=== PATIENT | female | born 1945 | race Caucasian/White ===

== ENCOUNTER → 2018-06-18 08:09 | Outpatient (CLI) | payer MEDICARE, SELFPAY ==
[2018-06-18 11:36] LABS: Alanine Aminotransferase 32 U/L (12-78); Albumin Level 3.5 gm/dL (3.4-5.0); Albumin/Globulin Ratio 0.9 (1.1-1.8); Alkaline Phosphatase 80 U/L (46-116); Anion Gap 9.7 mEq/L (5-15); Aspartate Amino Transferase 22 U/L (15-37); Bilirubin,Total 0.5 mg/dL (0.2-1.0); Blood Urea Nitrogen 14 mg/dL (7-18); Calcium 9.9 mg/dL (8.5-10.1); Carbon Dioxide 28 mmol/L (21.0-32.0); Chloride 106 mmol/L (98-107); Creatinine,Serum 0.69 mg/dL (0.55-1.02); Estimated Glomerular Filt Rate 84 ml/min (>60); GFR (African American) 101 ML/MIN (>60); Globulin 3.7 gm/dl (1.3-3.2); Glucose 103 mg/dL (74-106); Potassium 4.7 mmoL/L (3.5-5.1); Sodium 139 mmol/L (136-145); Total Protein,Serum 7.2 gm/dL (6.4-8.2)
[2018-06-18 11:46] LABS: Thyroid Stimulating Hormone 0.17 uIU/ml (0.358-3.740)
== END ==
PROVIDERS: Visit Provider Internal Medicine Adolescent Medicine
DX: E03.9 Hypothyroidism, unspecified (principal)
CPT/HCPCS: 36415; 80053; 84443

== ENCOUNTER → 2019-01-07 13:32 | Outpatient (POV) | payer MEDICARE, SELFPAY | PROVIDERS: Visit Provider Dermatology | DX: Z00.00 Encounter for general adult medical examination without abnormal findings (principal) ==

== ENCOUNTER → 2019-02-04 15:40 | Outpatient (POV) | payer MEDICARE, SELFPAY | PROVIDERS: Visit Provider Dermatology | DX: Z00.00 Encounter for general adult medical examination without abnormal findings (principal) ==

== ENCOUNTER → 2019-03-11 11:28 | Outpatient (POV) | payer MEDICARE, SELFPAY | PROVIDERS: Visit Provider Dermatology | DX: Z00.00 Encounter for general adult medical examination without abnormal findings (principal) ==

== ENCOUNTER → 2019-06-02 12:34 | Outpatient (CLI) | payer MEDICARE, SELFPAY ==
[2019-06-02 14:33] LABS: Thyroid Stimulating Hormone 0.03 uIU/ml (0.358-3.740)
[2019-06-03 14:12] LABS: Free Thyroxine Index 3.7 ug/dL (5.93-13.13); T4 (Thyroxine) 9.5 ug/dl (4.7-13.3); Triiodothryronine (T3) Uptake 39 % (31-39)
== END ==
PROVIDERS: Visit Provider Internal Medicine Adolescent Medicine
DX: E03.9 Hypothyroidism, unspecified (principal)
CPT/HCPCS: 36415; 84436; 84443; 84479

== ENCOUNTER → 2019-06-17 13:01 | Outpatient (POV) | payer MEDICARE, SELFPAY | PROVIDERS: Visit Provider Dermatology | DX: Z00.00 Encounter for general adult medical examination without abnormal findings (principal) ==

== ENCOUNTER → 2019-08-19 13:03 | Outpatient (POV) | payer MEDICARE, SELFPAY | PROVIDERS: Visit Provider Dermatology | DX: Z00.00 Encounter for general adult medical examination without abnormal findings (principal) ==

== ENCOUNTER → 2020-02-03 11:02 | Outpatient (POV) | payer MEDICARE, SELFPAY | PROVIDERS: PCP Dermatology; Visit Provider Dermatology | DX: Z00.00 Encounter for general adult medical examination without abnormal findings (principal) ==

== ENCOUNTER → 2020-04-10 08:28 | Outpatient (CLI) | payer MEDICARE, SELFPAY ==
[2020-04-10 08:52] LABS: Basophils % 0.5 % (0.1-2.0); Eosinophils # 0.2 K/mm3 (0.0-0.4); Eosinophils % 4.1 % (0.1-12.0); Hemoglobin 14.5 g/dL (12.2-16.2); Lymphocytes # 1.5 K/mm3 (0.7-4.5); Lymphocytes % 33.2 % (10-50); Mean Corpuscular HGB Conc 32.4 g/dL (31.8-35.4); Mean Corpuscular Volume 101.8 fl (81-99); Mean Platelet Volume 7.1 fl (7.4-10.4); Monocytes # 0.3 K/mm3 (0.1-1.0); Monocytes % 5.6 % (1.7-9.3); Neutrophils # 2.6 K/mm3 (1.8-7.8); Neutrophils % 56.7 % (37.0-80.0); Platelet Count 264 K/mm3 (142-424); Red Blood Count 4.41 M/mm3 (4.20-5.40); Red Cell Distribution Width 13.5 % (11.5-17.5); White Blood Count 4.6 K/mm3 (4.8-10.8)
[2020-04-10 11:21] LABS: Alanine Aminotransferase 28 U/L (12-78); Albumin Level 4.4 g/dl (3.5-5.0); Albumin/Globulin Ratio 1.4 (1.1-1.8); Alkaline Phosphatase 66 U/L (38-126); Anion Gap 9.1 mEq/L (5-15); Aspartate Amino Transferase 35 U/L (14-36); Bilirubin,Total 0.3 mg/dl (0.2-1.3); Blood Urea Nitrogen 13 mg/dl (7-17); Calcium 10.7 mg/dl (8.4-10.2); Carbon Dioxide 30 mmol/L (22.0-30.0); Chloride 103 mmol/L (98-107); Estimated Glomerular Filt Rate 98 ml/min (>60); GFR (African American) 119 ML/MIN (>60); Globulin 3.1 g/dL (1.3-3.2); Glucose 118 mg/dl (74-100); Potassium 5.1 mmoL/L (3.5-5.1); Sodium 137 mmol/L (136-145); Total Protein,Serum 7.5 g/dl (6.3-8.2)
[2020-04-10 11:51] LABS: Thyroid Stimulating Hormone 0.36 uIU/mL (0.465-4.68)
[2020-04-10 12:11] LABS: Hemoglobin A1C 5.3 % (4.0-6.0)
[2020-04-12 11:13] LABS: Vitamin D 25 Hydroxy 38.2 ng/mL (30.0-100.0)
[2020-04-14 14:33] LABS: Vitamin B12 619 pg/mL (232-1245)
== END ==
PROVIDERS: Visit Provider Internal Medicine Adolescent Medicine
DX: E03.9 Hypothyroidism, unspecified (principal); E78.5 Hyperlipidemia, unspecified; D75.89 Other specified diseases of blood and blood-forming organs; M85.80 Other specified disorders of bone density and structure, unspecified site; Z83.3 Family history of diabetes mellitus; R73.9 Hyperglycemia, unspecified
CPT/HCPCS: 36415; 80053; 82607; 82652; 83036; 84443; 85025

== ENCOUNTER → 2020-08-10 12:03 | Outpatient (POV) | payer MEDICARE, SELFPAY | PROVIDERS: Visit Provider Dermatology | DX: Z00.00 Encounter for general adult medical examination without abnormal findings (principal) ==

== ENCOUNTER → 2021-05-02 08:05 | Outpatient (CLI) | payer MEDICARE, SELFPAY ==
[2021-05-02 09:09] LABS: Basophils # 0.1 K/mm3 (0-0.2); Basophils % 0.9 % (0.1-2.0); Eosinophils # 0.1 K/mm3 (0.0-0.4); Eosinophils % 2.8 % (0.1-12.0); Hematocrit 44.2 % (37.0-47.0); Hemoglobin 14.5 g/dL (12.2-16.2); Lymphocytes # 1.8 K/mm3 (0.7-4.5); Lymphocytes % 34.6 % (10-50); Mean Corpuscular HGB Conc 32.7 g/dL (31.8-35.4); Mean Corpuscular Hemoglobin 31.8 pg (27.0-31.2); Mean Corpuscular Volume 97.1 fl (81-99); Mean Platelet Volume 7.2 fl (7.4-10.4); Monocytes # 0.3 K/mm3 (0.1-1.0); Monocytes % 5.1 % (1.7-9.3); Neutrophils # 2.9 K/mm3 (1.8-7.8); Neutrophils % 56.5 % (37.0-80.0); Platelet Count 285 K/mm3 (142-424); Red Blood Count 4.56 M/mm3 (4.20-5.40); Red Cell Distribution Width 13.3 % (11.5-17.5); White Blood Count 5.1 K/mm3 (4.8-10.8)
[2021-05-02 09:53] LABS: Alanine Aminotransferase 25 U/L (12-78); Albumin Level 4.3 g/dl (3.5-5.0); Albumin/Globulin Ratio 1.5 (1.1-1.8); Alkaline Phosphatase 65 U/L (38-126); Anion Gap 7.7 mEq/L (5-15); Aspartate Amino Transferase 33 U/L (14-36); Bilirubin,Total 0.5 mg/dl (0.2-1.3); Blood Urea Nitrogen 12 mg/dl (7-17); Calcium 10.2 mg/dl (8.4-10.2); Carbon Dioxide 31 mmol/L (22.0-30.0); Chloride 106 mmol/L (98-107); Chol/HDL Ratio 2.2 (1-3.5); Cholesterol 209 mg/dl (140-200); Estimated Glomerular Filt Rate 82 ml/min (>60); GFR (African American) 99 ML/MIN (>60); Globulin 2.8 g/dL (1.3-3.2); Glucose 106 mg/dl (74-100); HDL Cholesterol 97 mg/dl (40-60); Potassium 4.7 mmoL/L (3.5-5.1); Sodium 140 mmol/L (136-145); Total Protein,Serum 7.1 g/dl (6.3-8.2); Triglycerides 106 mg/dl (30-150); VLDL Cholesterol 21 mg/dL (0-40)
[2021-05-02 10:04] LABS: Direct LDL Cholesterol 86.66 mg/dL (100-129)
[2021-05-02 10:25] LABS: 25-OH Vitamin D, Total 43.5 ng/mL (30-100)
== END ==
PROVIDERS: Visit Provider Internal Medicine Adolescent Medicine
DX: E03.9 Hypothyroidism, unspecified (principal); E78.5 Hyperlipidemia, unspecified; M85.80 Other specified disorders of bone density and structure, unspecified site; Z83.3 Family history of diabetes mellitus
CPT/HCPCS: 36415; 80053; 80061; 82306; 84443; 85025

== ENCOUNTER → 2021-07-19 13:49 | Outpatient (POV) | payer MEDICARE, SELFPAY | PROVIDERS: Visit Provider Dermatology | DX: Z00.00 Encounter for general adult medical examination without abnormal findings (principal) ==

== ENCOUNTER → 2022-07-25 11:10 | Outpatient (POV) | payer MEDICARE, SELFPAY | PROVIDERS: Visit Provider Dermatology | DX: Z00.00 Encounter for general adult medical examination without abnormal findings (principal) ==

== ENCOUNTER → 2022-09-15 12:44 | Outpatient (CLI) | payer MEDICARE, SELFPAY ==
--- NOTE | 2022-09-15 12:56 | XR_ITS ---
FINAL REPORT CLINICAL HISTORY: LT SIDED LOW BACK PAIN FINDINGS: SACROILIAC JOINTS Three views demonstrate no acute fracture or dislocation. There are mild degenerative changes of the SI joints. There is partial sacralization of L5 on the right. No soft tissue abnormality is seen. IMPRESSION: Mild degenerative change with no acute bony abnormality. Reviewed, Interpreted and Dictated by Brooks Aragon III, MD Transcribed by Agueda Veloz Authenticated and [facility]
== END ==
PROVIDERS: PCP Internal Medicine Adolescent Medicine; Visit Provider Internal Medicine Adolescent Medicine
DX: M54.50 Low back pain, unspecified (principal)
CPT/HCPCS: 72202

== ENCOUNTER → 2022-09-18 08:05 | Outpatient (CLI) | payer MEDICARE, SELFPAY ==
[2022-09-18 09:04] LABS: Basophils # 0.1 K/mm3 (0-0.2); Basophils % 1.1 % (0.1-2.0); Eosinophils # 0.2 K/mm3 (0.0-0.4); Eosinophils % 3.7 % (0.1-12.0); Hematocrit 44.4 % (37.0-47.0); Lymphocytes # 1.5 K/mm3 (0.7-4.5); Mean Corpuscular HGB Conc 31.6 g/dL (31.8-35.4); Mean Corpuscular Hemoglobin 32.2 pg (27.0-31.2); Mean Corpuscular Volume 101.8 fl (81-99); Mean Platelet Volume 7.4 fl (7.4-10.4); Monocytes # 0.3 K/mm3 (0.1-1.0); Monocytes % 5.4 % (1.7-9.3); Neutrophils # 3.1 K/mm3 (1.8-7.8); Neutrophils % 60.7 % (37.0-80.0); Platelet Count 341 K/mm3 (142-424); Red Blood Count 4.36 M/mm3 (4.20-5.40)
[2022-09-18 10:10] LABS: Chloride 102 mmol/L (98-107); Potassium 5.5 mmoL/L (3.5-5.1); Sodium 139 mmol/L (136-145)
[2022-09-18 10:12] LABS: Alanine Aminotransferase 23 U/L (12-78); Aspartate Amino Transferase 33 U/L (14-36); Blood Urea Nitrogen 13 mg/dl (7-17); Estimated Glomerular Filt Rate 97 ml/min (>60); GFR (African American) 118 ML/MIN (>60)
[2022-09-18 10:13] LABS: Albumin Level 4.2 g/dl (3.5-5.0); Albumin/Globulin Ratio 1.6 (1.1-1.8); Alkaline Phosphatase 76 U/L (38-126); Anion Gap 10.5 mEq/L (5-15); Bilirubin,Total 0.2 mg/dl (0.2-1.3); Calcium 10.2 mg/dl (8.4-10.2); Carbon Dioxide 32 mmol/L (22.0-30.0); Cholesterol 211 mg/dl (140-200); Globulin 2.7 g/dL (1.3-3.2); Glucose 104 mg/dl (74-100); Magnesium 2.1 mg/dl (1.6-2.3); Total Protein,Serum 6.9 g/dl (6.3-8.2); Triglycerides 83 mg/dl (30-150); VLDL Cholesterol 17 mg/dL (0-40)
[2022-09-18 10:14] LABS: HDL Cholesterol 90 mg/dl (40-60)
[2022-09-18 10:15] LABS: Chol/HDL Ratio 2.3 (1-3.5)
[2022-09-18 10:25] LABS: Direct LDL Cholesterol 91.27 mg/dL (100-129)
[2022-09-18 10:30] LABS: Free Thyroxine Index 2.6 ug/dL (5.93-13.13); T4 (Thyroxine) 8.1 ug/dl (5.53-11.0); Triiodothryronine (T3) Uptake 32 % (23.5-40.5)
[2022-09-18 10:44] LABS: Thyroid Stimulating Hormone 3.83 uIU/mL (0.465-4.68)
== END ==
PROVIDERS: PCP Internal Medicine Adolescent Medicine; Visit Provider Internal Medicine Adolescent Medicine
DX: R00.2 Palpitations (principal); E03.9 Hypothyroidism, unspecified; E78.5 Hyperlipidemia, unspecified; M54.50 Low back pain, unspecified; Z83.3 Family history of diabetes mellitus
CPT/HCPCS: 36415; 80053; 80061; 83735; 84436; 84443; 84479; 85025

== ENCOUNTER → 2022-10-03 13:46 | Outpatient (POV) | payer MEDICARE, SELFPAY ==
[2022-10-03 14:16] VITALS: BP 136/96; PULSE 101; RESP 18; O2SAT 99; BMI 22.3
--- NOTE | 2022-10-03 14:31 | EXP.PAIN.OV ---
HPI Data of Consult Patient: new to practice Consult date: 10/03/22 Requesting Physician: Elidia Varela APRN Primary Care Provider: Hood Ramírez MD Consult Narrative Reason for consult: Low back pain, left hip pain History of present illness: Ms. Saenz is a 77 year old female who presents today as a new patient. She is a referral from Eda Garcia's office. Today she rates her pain a 2 out of 10. Patient states her pain is all along her low back on the left side that radiates into her left hip. Patient describes this as a burning, aching sensation that is worse with increased activity. Patient denies any new trauma or injury. Patient states this has been going on for approximately the last several months and worsened over time. Patient does state the pain is intermittent and is frequently aggravated with prolonged sitting or standing. Patient also states that she does frequently get woken up at night due to the pain in her left SI area and hip. Patient states she does use ibuprofen as needed to help with her pain symptoms. Patient also states she uses heat and ice that provides temporary relief. Patient has tried Biofreeze and Aspercreme that provides some relief however temporary. Patient states she will frequently use a pillow between her knees for positioning at night to help with her pain. Patient states she is a runner and feels like she may have irritated or an inflamed nerve or joint. Patient does state that she continues to stay active however she has been only able to do more walking than running due to her pain. Patient has seen physical therapy in the past when she had a knee meniscus tear that did provide some improvement of her symptoms. Patient is not on any scheduled medications. Her Jose G is [phone]. It is been reviewed and appropriate. CC: Elidia Varela APRN [facility] Medical History (Updated 10/03/22 @ 14:37 by Elidia Varela APRN) HTN (hypertension) Hypothyroidism Osteoporosis Social History (Updated 10/03/22 @ 14:23 by Jami Iniguez RN) Smoking Status: Never smoker alcohol intake: never current occupational status: retired Travel in the last 8 weeks: None Review of Systems Review of Systems Review of systems:: pertinent systems reviewed and negative unless documented below Review of systems (narrative): Review of Systems: General: No recent weight changes, no fever, no sleep disturbances Respiratory: No cough, no shortness of air, no recurring pulmonary infections Cardiovascular/peripheral vascular: No chest pain, no palpitations, no edema, no shortness of breath Gastrointestinal: No new onset incontinence, normal bowel movements reported Genitourinary: No new onset incontinence Musculoskeletal: Low back pain, left hip pain Psychiatric: [Normal mood/affect] Neurological: [Denies weakness in extremities], [denies balance issues] Meds Home Medications and Allergies Home Medications Medication Instructions Recorded Confirmed Type hydroxychloroquine 200 mg tablet 200 mg PO DAILY . 10/03/22 10/03/22 History levothyroxine 125 mcg tablet 125 mcg PO DAILY THYROID 10/03/22 10/03/22 History losartan 50 mg tablet 50 mg PO DAILY BLOOD PRESSURE 10/03/22 10/03/22 History raloxifene 60 mg tablet 60 mg PO DAILY Osteoporosis 10/03/22 10/03/22 History New Prescriptions to Start Prescriptions: Allergies Allergy/AdvReac Type Severity Reaction Status Date / Time No Known Drug Allergies Allergy Unknown Unverified 11/06/17 14:24 [NKDA] Objective Vital signs: Pulse Resp BP Pulse Ox 101 H 18 136/96 H 99 10/03/22 14:16 10/03/22 14:16 10/03/22 14:16 10/03/22 14:16 Narrative: Physical Exam: General: Alert and oriented x3, no acute distress, pleasant and cooperative Lungs: Respirations even and unlabored, symmetrical chest expansion Eyes: PERRL Musculoskeletal: Flexion and extension of lumbar [spine] somewhat guarded secondary to pain, [antalgic gai
== END ==
PROVIDERS: PCP Internal Medicine Adolescent Medicine; Visit Provider Nurse Practitioner Family
DX: M46.1 Sacroiliitis, not elsewhere classified (principal); M70.60 Trochanteric bursitis, unspecified hip; M54.50 Low back pain, unspecified
CPT/HCPCS: 99202; G0463

== ENCOUNTER 2022-10-06 10:27 | Day surgery (SDC) | payer MEDICARE, SELFPAY ==
[2022-10-06 10:47] VITALS: BP 143/88; PULSE 81; RESP 18; TEMP 36.2; O2SAT 98; BMI 22.3
--- NOTE | 2022-10-06 11:19 | P.PCN_ITS ---
Procedure Date: 10/06/22 Time: 11:00 Anesthesiologist:: Frankie Vee CRNA Complications:: None Pre-procedure Diagnosis:: Left sacroiliitis. Left trochanteric bursitis. Post-procedure Diagnosis:: Same. Indications for Procedure:: Very pleasant 77-year-old female that comes our clinic today for left trochanteric bursa injection as well as left sacroiliac joint injection. Patient describes this left posterior and lateral pain as constant, dull, sharp, stabbing at times. She rates her pain 7/10. Procedure Details:: Procedure: Left sacroiliac injection under fluoroscopy Informed consent was obtained and the risk and benefits of the procedure were explained to the patient.~ The patient was taken to the procedure room and noninvasive monitors were placed including noninvasive blood pressure cuff and pulse oximeter.~ The patient was placed prone on the procedure table.~ The~ left hip was cleansed using Betadine as a cleansing solution.~ C-arm fluorosocpy was used to view the left SI joint.~ The skin and subcutaneous tissues were anesthetized using Lidocaine 1.5% and a 25-gauge needle.~ After this, a 22-gauge spinal needle was inserted under fluoroscopic guidance into the inferior aspect of the left SI joint.~ Omnipaque dye was injected and a good spread was seen throughout the joint.~ After this, approximately 5 mL of bupivacaine 0.25% and Depo-Medrol 40 mg was incrementally injected into the sacroiliac joint.~ The patient tolerated the procedure well with no complications.~ The patient was observed in the Pain Clinic for a period of 30-45 minutes, then discharged home neurologically intact.~ Procedure:Left trochanteric bursa injection under fluoroscopy We then moved to the left trochanteric bursa.~ C-arm fluoroscopy was used to view the left greater trochanter.~ The skin and subcutaneous tissues overlying the left greater trochanter were anesthetized using lidocaine, 1.5% and a 25- gauge needle.~ After this, a 22-gauge spinal needle was inserted and advanced until it contacted the left greater trochanter.~ Dye was injected and good spread was seen throughout the left trochanteric bursa. After this, approximately 5 mL of bupivacaine, 0.25% and Depo-Medrol, 40 mg was incrementally injected into the left trochanteric bursa.~ The patient tolerated the procedure well with no complications. Plan and Disposition:: Patient was discharged without incident.
[2022-10-06 11:21] VITALS: BP 153/97; PULSE 73; RESP 20
== END 2022-10-06 11:23 | disposition home or self-care (01) ==
PROVIDERS: PCP Internal Medicine Adolescent Medicine; Visit Provider Nurse Anesthetist, Certified Registered
DX: M46.1 Sacroiliitis, not elsewhere classified (principal); M70.62 Trochanteric bursitis, left hip
CPT/HCPCS: 20610; 27096; G0260; J1040

== ENCOUNTER → 2022-10-30 10:01 | Outpatient (POV) | payer MEDICARE, SELFPAY ==
--- NOTE | 2022-10-30 10:19 | EXP.PAIN.SOA ---
[facility] Pain Management SOAP Note Subjective:: Patient is a pleasant 77-year-old female who presents today for follow-up of left SI injection and left trochanteric bursa injection on 10/06/2022. We are currently treating the patient for low back pain, left hip pain, greater trochanteric bursitis, sacroiliitis. Today the patient states she has had significant improvement in her left hip following this injection. Patient has had at least 80% relief in this area however she states she has had worsening pain in her low back along her SI that radiates down her left leg to her ankle. Patient denies any new trauma or injury. Patient describes this as a achy, numb pain that is worse in the mornings and progressively gets better as the day goes on. Patient states this is bad with prolonged sitting. Patient is currently using [id number] Tylenol or ibuprofen as needed to provide some improvement of her symptoms. She is not currently on any scheduled medications. Her Jose G is [phone]. It has been reviewed and appropriate. Review of Systems: General: No recent weight changes, no fever, no sleep disturbances Respiratory: No cough, no shortness of air, no recurring pulmonary infections Cardiovascular/peripheral vascular: No chest pain, no palpitations, no edema, no shortness of breath Gastrointestinal: No new onset incontinence, normal bowel movements reported Genitourinary: No new onset incontinence Musculoskeletal: Low back pain Psychiatric: [Normal mood/affect] Neurological: [Denies weakness in extremities], [denies balance issues] Objective:: Physical Exam: General: Alert and oriented x3, no acute distress, pleasant and cooperative Lungs: Respirations even and unlabored, symmetrical chest expansion Eyes: PERRL Musculoskeletal: Flexion and extension of lumbar [spine] somewhat guarded secondary to pain, [antalgic gait noted] Neurological: Speech clear, no gross sensory deficit Assessment:: Low back pain, left hip pain, greater trochanteric bursitis, sacroiliitis Plan:: Patient is experiencing significant pain in her low back that radiates down her left leg. Patient did have limited range of motion of her lumbar spine during today's visit. I will order the patient tizanidine 4 mg at bedtime and provide a 14-day supply of this medication. I will also order the patient a compounding cream. I have discussed with the patient that she may benefit from a transforaminal epidural steroid injection. Risk and benefits were discussed with the patient. We will follow-up with the patient in 2 weeks for reevaluation of symptoms, medication refill and follow-up. At our upcoming visit we will discuss whether or not she would like to proceed forward with this injection. Patient has been instructed to contact the clinic with any concerns before the next appointment. Dr. Ayala has reviewed this note and agrees with this plan of care. This note was dictated using voice recognition software and make contain errors or omissions. [facility] Disclaimer: The information contained in this section may have been updated after the patient was seen, as this information can be updated by other users. Medical History HTN (hypertension) Hypothyroidism Osteoporosis Family History (Updated 10/06/22 @ 10:49 by Janeth Marie RN) Other No significant family history Social History (Updated 10/06/22 @ 10:49 by Janeth Marie RN) Smoking Status: Never smoker alcohol intake: never current occupational status: retired Travel in the last 8 weeks: None
[2022-10-30 10:28] VITALS: BP 166/102; PULSE 82; RESP 18; O2SAT 99; BMI 22.1
== END | disposition home or self-care (01) ==
PROVIDERS: PCP Internal Medicine Adolescent Medicine; Visit Provider Nurse Practitioner Family
DX: M46.1 Sacroiliitis, not elsewhere classified (principal); M70.60 Trochanteric bursitis, unspecified hip; M25.552 Pain in left hip; M54.50 Low back pain, unspecified
CPT/HCPCS: 99212; G0463

== ENCOUNTER → 2022-11-23 08:45 | Outpatient (POV) | payer MEDICARE, SELFPAY ==
--- NOTE | 2022-11-23 09:12 | A.OFFVIS_ITS ---
[facility] Pain Management SOAP Note Subjective:: Patient is a pleasant 77-year-old female who presents today for follow-up. We are currently treating the patient for low back pain, left hip pain, greater trochanteric bursitis, sacroiliitis. Today the patient rates her pain a 3 out of 10. Patient denies any new trauma or injury. Patient denies any change location or type of pain she experiences. Patient does describe this as a painful sensation that is worse at night and in the morning however as the day goes on it does ease up. Patient has had SI injections and bursa injections in the past that provided significant if he cannot improvement of at least 80%. Patient does use [id number] Tylenol or ibuprofen with some additional improvement. Patient was recently prescribed tizanidine 4 mg at at bedtime and compounding cream however she states that she has not noticed significant improvement with either of these. Her Jose G is [phone]. It has been reviewed and appropriate. Review of Systems: General: No recent weight changes, no fever, no sleep disturbances Respiratory: No cough, no shortness of air, no recurring pulmonary infections Cardiovascular/peripheral vascular: No chest pain, no palpitations, no edema, no shortness of breath Gastrointestinal: No new onset incontinence, normal bowel movements reported Genitourinary: No new onset incontinence Musculoskeletal: Low back pain, left leg pain Psychiatric: [Normal mood/affect] Neurological: [Denies weakness in extremities], [denies balance issues] Objective:: Physical Exam: General: Alert and oriented x3, no acute distress, pleasant and cooperative Lungs: Respirations even and unlabored, symmetrical chest expansion Eyes: PERRL Musculoskeletal: Flexion and extension of lumbar [spine] somewhat guarded secondary to pain, [antalgic gait noted] Neurological: Speech clear, no gross sensory deficit ORT score updated with low risk of 0 Assessment:: Low back pain, left hip pain, left sacroiliitis, left greater trochanteric bursitis Plan:: Patient continues to experience significant pain along her left SI and down her thigh however at this time she is not interested in injective therapy. I will prescribe her ropinirole 0.25 mg at bedtime and provide a 14-day supply of this medication. Patient will return to clinic in 2 months for reevaluation, medication refill and follow-up. Patient has been instructed to contact the clinic with any concerns before the next appointment. Dr. Ayala has reviewed this note and agrees with this plan of care. This note was dictated using voice recognition software and make contain errors or omissions. [facility] Disclaimer: The information contained in this section may have been updated after the patient was seen, as this information can be updated by other users. Medical History HTN (hypertension) Hypothyroidism Osteoporosis Family History (Updated 10/06/22 @ 10:49 by Janeth Marie RN) Other No significant family history Social History (Updated 10/06/22 @ 10:49 by Janeth Marie RN) Smoking Status: Never smoker alcohol intake: never current occupational status: retired Travel in the last 8 weeks: None
[2022-11-23 09:21] VITALS: BP 148/90; PULSE 76; RESP 18; O2SAT 97; BMI 22.1
== END | disposition home or self-care (01) ==
PROVIDERS: PCP Internal Medicine Adolescent Medicine; Visit Provider Nurse Practitioner Family
DX: M46.1 Sacroiliitis, not elsewhere classified (principal); M70.62 Trochanteric bursitis, left hip; M54.50 Low back pain, unspecified; M25.552 Pain in left hip
CPT/HCPCS: 99212; G0463

== ENCOUNTER 2023-04-24 15:00 | Outpatient (RCR) | payer MEDICARE, SELFPAY ==
--- NOTE | 2023-03-27 11:43 | HMH.PTOPEV ---
PT Outpatient Evaluation Rehab PT Outpatient Evaluation Start: 03/27/23 10:52 Freq: Status: Active Protocol: Document 03/27/23 10:52 ROSS (Rec: 03/27/23 11:42 ROSS [id number]) E-signed By Elidia Gilliland, PT Outpatient Therapy Subjective History Subjective History Pt is a 78 y/o female who reports chronic LBP with worsening of L sided symptoms last fall without known cause, graciela trauma or injury. Pt reports her PCP referred her to pain management initially where she received a SIJ injection that flared up her scaitic N. Pt reports after the injection she had sharp, shooting pain from the left posterior hip to the ankle. Pt reports she started seeing a chiropractor at the beginning of the year which helped with radicular symptoms. Pt reports she stopped seeing him ~3 weeks ago. Pt states she currently has stiffness of the low back when she wakes up and first starts walking after sedentary periods. Pt reports intermittent referral of pain to the left posterior hip to the buttocks, denies distal symptoms. Pt denies paresthesia or b/b dysfunction . Pt reports she is very active and walks 3 miles per day. Pt reports prior to onset of pain she was running 6x/ week and would like to return to this. Medical History: HTN ( hypertension), Hypothyroidism, Osteopenia Chief Complaint Pain,Stiff Symptom Type Ache,Sharp,Dull Symptoms Relieved By Ice,OTC Meds Symptoms Aggravated By Sitting,Walking,Lifting Prior Functional Limitations None Current Functional Limitations Lifting,Recreation Activity, Walking,Stairs Symptom Description Constant but Variable Level of pain today (0-10) 1 Pain scale - at its best (0-10) 1 Pain scale - at its worst (0-10)
== END 2023-04-24 15:05 | disposition home or self-care (01) ==
LOC: PT 15:00
PROVIDERS: PCP Internal Medicine Adolescent Medicine; Visit Provider Internal Medicine Adolescent Medicine
DX: M54.50 Low back pain, unspecified (principal)
CPT/HCPCS: 97110; 97140; 97163; 97530

== ENCOUNTER 2024-07-29 13:42 | Outpatient (POV) | payer MEDICARE, SELFPAY | END 2024-07-29 23:59 | disposition home or self-care (01) | PROVIDERS: PCP Internal Medicine Adolescent Medicine; Visit Provider Dermatology | DX: Z00.00 Encounter for general adult medical examination without abnormal findings (principal) ==

== ENCOUNTER 2024-12-02 09:16 | Outpatient (CLI) | payer MEDICARE, SELFPAY ==
--- NOTE | 2024-12-02 09:22 | CT_ITS ---
FINAL REPORT TECHNIQUE: Oral and IV contrast enhanced exam This study was performed with techniques to keep radiation doses as low as reasonably achievable, (ALARA). Individualized dose reduction techniques using automated exposure control or adjustment of mA and/or kV according to the patient''s size were employed. CLINICAL HISTORY: FLANK PAIN, generalized abd pain in front FINDINGS: Abdomen: There are vague small nodular densities bilaterally in the lung bases, could represent bronchopneumonia. There is a hypodensity within the central pancreas suspicious for a mass. This is seen on coronal images 17 through 20 of series 601. On coronal images, the presumed mass measures 46 x 22 mm. The mass probably encases the portal vein-SMV junction. There is pancreatic ductal dilatation measuring up to 7 mm distal to the mass. This is indicative of pancreatic ductal obstruction. There is adenopathy in the peripancreatic region and shaina hepatis. On axial image 38, adenopathy measures 13 mm. On axial image 33, adenopathy medial to the portal vein measures 28 mm. The liver is unremarkable without evidence of bile obstruction. Remaining solid organs are unremarkable. There is no evidence of ascites. Pelvis: The appendix is normal. The uterus is normal aside from small fibroids. There is no free fluid. 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 No obvious liver metastases. Densities in the bilateral lung bases, could represent bronchopneumonia. Non emergent CT is recommended. Reviewed, Interpreted and Dictated by Trey Mar MD Transcribed by Hien Gorman Authenticated and [facility]
[2024-12-02] MEDS: IOPAMIDOL-370 (76%);100ML BOTTLE 75 ML IV (09:48)
[2024-12-02] MEDS: SODIUM CHLORIDE 0.9% 10ML SYR (RAD ONLY) 10 ML IV (09:48)
== END 2024-12-02 23:59 | disposition home or self-care (01) ==
LOC: RAD 09:17
PROVIDERS: PCP Internal Medicine Adolescent Medicine; Visit Provider Internal Medicine Adolescent Medicine
DX: R10.84 Generalized abdominal pain (principal)
CPT/HCPCS: 74177; Q9967

== ENCOUNTER 2024-12-25 17:48 | Emergency (ER) | payer MEDICARE, SELFPAY ==
[2024-12-25] VITALS (9 sets, daily range): BP systolic 146–211; BP diastolic 86–122; PULSE 85–93; RESP 12–20; TEMP 36.5–36.9; O2SAT 95–98; BMI 22.0
--- NOTE | 2024-12-25 17:51 | ED_ITS ---
Discharge Plan Disposition Patient Disposition: Home, Self-Care Condition: Good Prescriptions Prescriptions: No Action losartan 50 mg tablet 50 mg PO DAILY levothyroxine 125 mcg tablet 125 mcg PO DAILY raloxifene 60 mg tablet 60 mg PO DAILY hydroxychloroquine 200 mg tablet 200 mg PO DAILY ropinirole 0.25 mg tablet 0.25 mg PO HS Qty: 14 0RF Rx Instructions: administer 1-3 hours before bedtime tizanidine [Zanaflex] 4 mg tablet 4 mg PO HS Referrals Follow up/Referrals: Hood Ramírez MD [Primary Care Provider] - See instructions Activity Restrictions/Add. Instructions Additional Instructions/Restrictions: Continue taking Xarelto twice a day. Follow-up with Dr. Ponce tomorrow. Return to the ER for any worsening signs or symptoms as needed. Clinical Impressions Clinical Impression: Pulmonary emboli Qualifiers: Pulmonary embolism type: multiple subsegmental (without acute cor pulmonale) Qualified Code(s): I26.94 - Multiple subsegmental thrombotic pulmonary emboli without acute cor pulmonale Print Language Print Language: [place] Discharge ED Provider: Elidia Hayes General Adult HPI <SHAUN Casiano - Last Filed: 12/25/24 20:02> General Chief complaint: Recheck/Abnormal Lab/Rx Stated complaint: sent by [facility] blood clots in lungs Time Seen by Provider: 12/25/24 17:51 History of Present Illness HPI narrative: Patient presents for evaluation of pulmonary embolus. Patient has a recent diagnosis of pancreatic cancer that is metastatic. She is currently undergoing workup at the [facility]. As part of that workup she had a CT PE protocol done today that showed right lower lobe subsegmental pulmonary emboli. She was advised to come to the ER for evaluation. Patient herself denies any chest pain shortness of breath fever chills hemoptysis hematochezia melena hematemesis hematuria. She is not on a blood thinner and does not have a cardiac history. Related Data Home Medications ?Medication ?Instructions ?Recorded ?Confirmed hydroxychloroquine 200 mg tablet 200 mg PO DAILY . 10/03/22 12/25/24 levothyroxine 125 mcg tablet 125 mcg PO DAILY THYROID 10/03/22 12/25/24 losartan 50 mg tablet 50 mg PO DAILY BLOOD PRESSURE 10/03/22 12/25/24 raloxifene 60 mg tablet 60 mg PO DAILY Osteoporosis 10/03/22 12/25/24 tizanidine 4 mg tablet (Zanaflex) 4 mg PO HS MUSCLES 11/23/22 12/25/24 Previous Rx's ?Medication ?Instructions ?Recorded ropinirole 0.25 mg tablet 0.25 mg PO HS #14 tabs 11/23/22 Allergies Allergy/AdvReac Type Severity Reaction Status Date / Time No Known Drug Allergies Allergy Unknown Verified 10/06/22 10:47 (NKDA) [facility] <SHAUN Casiano - Last Filed: 12/25/24 20:02> [facility] Disclaimer: The information contained in this section may have been updated after the patient was seen, as this information can be updated by other users. Medical History (Updated 12/25/24 @ 19:48 by SHAUN Casiano) Osteoporosis HTN (hypertension) Hypothyroidism Family History (Updated 10/06/22 @ 10:49 by Janeth Marie RN) Other No significant family history Social History (Updated 10/06/22 @ 10:49 by Janeth Marie RN) Smoking Status: Never smoker alcohol intake: never current occupational status: retired Travel in the last 8 weeks: None Have you lived/traveled outside [place] in past 30 days?: No Contact w/someone who lives/traveled outside US past 30 days?: No Exposure to someone with infectious disease in past 14 days?: No Do you have a fever (greater than 100.4 F or 38 C)?: No Have you tested positive for COVID-19: No Exposed to someone with COVID-19 in past 14 days?: No Do you have a sore throat?: No Do you have a cough?: No Do you have any weakness?: No Do you have any diarrhea?: No Are you experiencing any unusual bleeding?: No Do you have any muscle aches/pain?: No Do you have any abdominal pain?: No Are you experiencing loss of taste or smell?: No Other Medical History Have you received the Flu Vaccine for this season: Yes Have you received the Pneumonia Vaccine: Yes <SHAUN Casiano - Last Filed: 12/25/24 20:02> ROS Obtained: Yes Systems reviewed as appropriate & no additional complaints except as documented Physical Exam <SHAUN Casiano - Last Filed: 12/25/24 20:02> General General appearance: alert Respiratory Respiratory exam: Present normal lung sounds bilaterally Cardiovascular Cardiovascular exam: Present regular rate Neurological Exam Neurological exam: Present alert and oriented X3 Psychiatric Psychiatric exam: Present normal affect Medical Decision Making <SHAUN Casiano - Last Filed: 12/25/24 20:02> Medical Records Medical records reviewed: Yes I reviewed the patient's medical records. Screening: Per USPSTF and CDC recommendations, given the prevalence of disease in our region, it is our hospital?s policy to screen for HIV and viral Hepatitis for all patients aged 18 and over and those with ongoing risk factors. Jose G Inquiry Pt receiving controlled substance: No Vital Signs: 12/25/24 17:49 12/25/24 17:53 12/25/24 17:55 Temperature 97.7 F Temperature Source Oral Pulse Rate 90 85 Pulse Rate [Radial] 93 H Respiratory Rate 18 Blood Pressure 202/121 H 200/118 H Blood Pressure [Right Arm] 200/118 H Blood Pressure Mean [Right Arm] 145 Blood Pressure Source Blood Pressure Source [Right Arm] Automatic Cuff Blood Pressure Position Blood Pressure Position [Right Arm] Sitting 02 Sat by Pulse Oximetry 96 95 98 Oxygen Delivery Method Room Air 12/25/24 17:58 12/25/24 18:15 12/25/24 18:31 Temperature Temperature Source Pulse Rate 91 H Pulse Rate [Radial] Respiratory Rate 19 14 13 Blood Pressure 211/122 H 185/113 H 157/91 H Blood Pressure [Right Arm] Blood Pressure Mean [Right Arm] Blood Pressure Source Blood Pressure Source [Right Arm] Blood Pressure Position Blood Pressure Position [Right Arm] 02 Sat by Pulse Oximetry 98 Oxygen Delivery Method 12/25/24 19:00 12/25/24 19:30 12/25/24 20:19 Temperature 98.4 F Temperature Source Oral Pulse Rate 89 89 Pulse Rate [Radial] Respiratory Rate 12 16 20 Blood Pressure 146/86 H 154/90 H 154/90 H Blood Pressure [Right Arm] Blood Pressure Mean [Right Arm] Blood Pressure Source Automatic Cuff Blood Pressure Source [Right Arm] Blood Pressure Position Sitting Blood Pressure Position [Right Arm] 02 Sat by Pulse Oximetry 97 Oxygen Delivery Method Room Air Room Air Room Air Lab Data Lab results reviewed: Yes I reviewed the patient's lab results. Lab Results 12/25/24 18:00: PT 10.4, INR 0.94, APTT 23.9, Troponin I < 0.01, HCV Ab CARLOS w/Rflx PCR Qn Negative, HIV Ag/Ab Combo Qual Negative Orders (Tests/Meds): ED MEDICATIONS Discontinued Medications Generic Name Dose Route Start Last Admin Trade Name Freq PRN Reason Stop Dose Admin Rivaroxaban 1 packet 12/25/24 19:49 12/25/24 20:11 Xarelto 15mg Thp 1 Packet Greg PO 12/25/24 19:50 1 packet ONCE ONE Administration ORDERS Category Date Time Status POCUS Point of Care (ER Only) Stat Exams 12/25/24 18:19 Completed HIV Combo Stat Lab 12/25/24 18:00 Completed Hepatitis C Ab Qual. W/ RFX Stat Lab 12/25/24 18:00 Completed PT/PTT Stat Lab 12/25/24 18:00 Completed Trop I [Troponin I] Stat Lab 12/25/24 18:00 Completed HEART Score History (anamnesis): Slightly suspicious ECG: Non-specific disturbance Age: >65 years Risk factors: 3 or more risk factors Troponin: </= normal limit HEART Score: 5 Medical Decision Narrative: In summary patient is a 79-year-old female who presents to the emergency department for evaluation of pulmonary emboli. Patient is initially hypertensi ve with a systolic blood pressure of 200 over diastolic of 119 with a pulse of 93 respiratory rate of 18 satting at 96% on room air upon arrival, the temperature of 97.7. Zickel exam is remarkable for a well-nourished well- developed 79-year-old female who is in currently no acute distress. Breath sounds are clear and equal bilaterally to the bases without adventitious sounds. Heart sounds are normal without any signs of murmurs gallops rubs or thrills. There is no dependent edema noted.. Differential diagnosis includes subsegmental right lower lobe pulmonary emboli versus cor pulmonale versus ACS etc. Initial workup will be conducted with coags troponins twelve-lead EKG and POCUS. Initial interventions are deferred until workup complete. Initial workup reviewed by me and twelve-lead EKG shows no evidence of ACS, coags are within normal range with an INR of 0.94 and a PTT of 23.9, and POCUS did not really reveal any evidence of right heart strain. Given this patient will be started on Xarelto with a take-home pack and will follow-up with Dr. Ponce in the morning per their arrangement. Patient given strict return precautions. <Elidia Hayes, DO - Last Filed: 12/26/24 00:23> Vital Signs: 12/25/24 17:49 12/25/24 17:53 12/25/24 17:55 Temperature 97.7 F Temperature Source Oral Pulse Rate 90 85 Pulse Rate [Radial] 93 H Respiratory Rate 18 Blood Pressure 202/121 H 200/118 H Blood Pressure [Right Arm] 200/118 H Blood Pressure Mean [Right Arm] 145 Blood Pressure Source Blood Pressure Source [Right Arm] Automatic Cuff Blood Pressure Position Blood Pressure Position [Right Arm] Sitting 02 Sat by Pulse Oximetry 96 95 98 Oxygen Delivery Method Room Air 12/25/24 17:58 12/25/24 18:15 12/25/24 18:31 Temperature Temperature Source Pulse Rate 91 H Pulse Rate [Radial] Respiratory Rate 19 14 13 Blood Pressure 211/122 H 185/113 H 157/91 H Blood Pressure [Right Arm] Blood Pressure Mean [Right Arm] Blood Pressure Source Blood Pressure Source [Right Arm] Blood Pressure Position Blood Pressure Position [Right Arm] 02 Sat by Pulse Oximetry 98 Oxygen Delivery Method 12/25/24 19:00 12/25/24 19:30 12/25/24 20:19 Temperature 98.4 F Temperature Source Oral Pulse Rate 89 89 Pulse Rate [Radial] Respiratory Rate 12 16 20 Blood Pressure 146/86 H 154/90 H 154/90 H Blood Pressure [Right Arm] Blood Pressure Mean [Right Arm] Blood Pressure Source Automatic Cuff Blood Pressure Source [Right Arm] Blood Pressure Position Sitting Blood Pressure Position [Right Arm] 02 Sat by Pulse Oximetry 97 Oxygen Delivery Method Room Air Room Air Room Air Lab Data Lab Results 12/25/24 18:00: PT 10.4, INR 0.94, APTT 23.9, Troponin I < 0.01, HCV Ab CARLOS w/Rflx PCR Qn Negative, HIV Ag/Ab Combo Qual Negative Orders (Tests/Meds): ED MEDICATIONS Discontinued Medications Generic Name Dose Route Start Last Admin Trade Name Freq PRN Reason Stop Dose Admin Rivaroxaban 1 packet 12/25/24 19:49 12/25/24 20:11 Xarelto 15mg Thp 1 Packet Greg PO 12/25/24 19:50 1 packet ONCE ONE Administration ORDERS Category Date Time Status POCUS Point of Care (ER Only) Stat Exams 12/25/24 18:19 Completed HIV Combo Stat Lab 12/25/24 18:00 Completed Hepatitis C Ab Qual. W/ RFX Stat Lab 12/25/24 18:00 Completed PT/PTT Stat Lab 12/25/24 18:00 Completed Trop I [Troponin I] Stat Lab 12/25/24 18:00 Completed ECG Data Tracing #1: I reviewed this ECG and interpreted as documented below: Normal sinus rhythm with a ventricular rate of [address] changes concerning for ischemia. Normal intervals ECG initial impression date: 12/25/24 ECG initial impression time: 18:51 HEART Score HEART Score: 5 Medical Decision Narrative: In summary patient is a 79-year-old female who presents to the emergency department for evaluation of pulmonary emboli. Patient is initially hypertensive with a systolic blood pressure of 200 over diastolic of 119 with a pulse of 93 respiratory rate of 18 satting at 96% on room air upon arrival, the temperature of 97.7. Zickel exam is remarkable for a well-nourished well-deve loped 79-year-old female who is in currently no acute distress. Breath sounds are clear and equal bilaterally to the bases without adventitious sounds. Heart sounds are normal without any signs of murmurs gallops rubs or thrills. There is no dependent edema noted.. Differential diagnosis includes subsegmental right lower lobe pulmonary emboli versus cor pulmonale versus ACS etc. Initial workup will be conducted with coags troponins twelve-lead EKG and POCUS. Initial interventions are deferred until workup complete. Initial workup reviewed by me and twelve-lead EKG shows no evidence of ACS, coags are within normal range with an INR of 0.94 and a PTT of 23.9, and POCUS did not reveal any evidence of right heart strain. Given this patient will be started on Xarelto with a take- home pack and will follow-up with Dr. Ponce in the morning per their arrangement. Patient given strict return precautions. DO Freddy: I was consulted by the ROBBIE, and we discussed the complexity of the p ghazal being addressed. I approved the treatment and management plan for this patient's care in the emergency department, thus performing a substantive portion of the medical decision making. I performed bedside cardiac ultrasound Elidia Hayes, DO Procedures <Elidia Hayes DO - Last Filed: 12/26/24 00:23> Limited Ultrasound Findings:: Limited cardiac ultrasound Indication: [-Chest pain -Shortness of breath -Syncope -Weakness -Swelling] Identified cardiac views: [-Cardiac parasternal long axis] [-Cardiac parasternal short axis] [-Cardiac apical four-chamber] Findings: [-Cardiac activity present -Gross wall motion normal -Pericardial effusion absent -Right heart strain absent] Impression: -[From above] Images were saved to permanent archive The study was technically adequate CPT: 69358 This study was performed by me, and I personally interpreted all images/videos. Based on my clinical judgement, these images were adequate and did not necessitate further imaging. Critical Care <SHAUN Casiano - Last Filed: 12/25/24 20:02> Critical Care Time Critical Care Time: Yes Attestation: On 12/25/24, the high probability of a clinically significant, sudden or life threatening deterioration of the following system(s) required my full and direct attention, intervention and personal management. The time I documented below is in addition to time spent performing reported procedures but includes the following listed in this critical care notation. Total Time Total Critical Care Time: 35
[2024-12-25 18:29] LABS: Activated Partial Thrombo Time 23.9 seconds (22.5-28.5); INR 0.94 (0.9-1.1); Prothrombin Time 10.4 seconds (9.2-12.1)
[2024-12-25 18:42] LABS: Troponin I < 0.01 ng/ml (0.00-0.034)
--- NOTE | 2024-12-25 18:50 | ECG_ITS ---
APPROVED REPORT Exam: Resting ECG HR:82 bpm ECG Measurements Heart Rate 82 AXES OR 186 P 12 QRSd 88 QRS 13 QT 368 T 34 QTc 407 Conclusion SINUS RHYTHM POSSIBLE LEFT ATRIAL ENLARGEMENT [-0.1mV P-WAVE IN V1/V2] BORDERLINE ECG UNCONFIRMED REPORT Electronically signed by : STACEY LEVINE, 12/26/2024 06:51:10
--- NOTE | 2024-12-25 18:56 | PC.NURSE ---
PT WAS GIVEN A WARM BLANKET
--- NOTE | 2024-12-25 19:22 | PC.NURSE ---
Report received from Lotus KELLY Pt resting quietly in bed Skin pink warm and dry Resp full and easy. Speech clear and appropriate. at bedside. Pt in NSR per continuous heart monitor.
[2024-12-25 20:09] LABS: HIV Combo NEGATIVE (Negative)
[2024-12-25] MEDS: XARELTO 15MG THP 1 PACKET PAK PO (20:11)
[2024-12-25 20:17] LABS: Hepatitis C Ab Qual. W/ RFX NEGATIVE (Negative)
== END 2024-12-25 20:20 | disposition home or self-care (01) ==
PROVIDERS: Physician Assistant; Emergency Provider Emergency Medicine; PCP Internal Medicine Adolescent Medicine
DX: I26.94 Multiple subsegmental thrombotic pulmonary emboli without acute cor pulmonale (principal); C78.89 Secondary malignant neoplasm of other digestive organs
CPT/HCPCS: 84484; 85610; 85730; 86803; 87389; 93005; 99285

== ENCOUNTER 2025-01-10 08:56 | Emergency (ER) | payer MEDICARE, SELFPAY ==
[2025-01-10] VITALS (16 sets, daily range): BP systolic 111–180; BP diastolic 82–112; PULSE 89–120; RESP 14–28; TEMP 36.9; O2SAT 92–98; BMI 22.0
--- NOTE | 2025-01-10 09:03 | ECG_ITS ---
APPROVED REPORT Exam: Resting ECG HR:99 bpm ECG Measurements Heart Rate 99 AXES WA 182 P 62 QRSd 96 QRS 84 QT 335 T 68 QTc 392 Conclusion Sinus rhythm Electronically signed by : SILKE WOODS, 01/10/2025 13:14:38
--- NOTE | 2025-01-10 09:13 | PC.NURSE ---
Dr. Fernandez at bedside
--- NOTE | 2025-01-10 09:15 | PC.NURSE ---
DR WOODS AT BEDSIDE
--- NOTE | 2025-01-10 09:25 | XR_ITS ---
PROCEDURE INFORMATION: Exam: XR Chest Exam date and time: 01/10/2025 9:24 AM Age: 79 years old Clinical indication: Cough and shortness of breath; Additional info: SOA R lung wheezing TECHNIQUE: Imaging protocol: Radiologic exam of the chest. Views: 2 views. COMPARISON: CT ABDOMEN PELVIS W CON 12/02/2024 9:38 AM FINDINGS: Tubes, catheters and devices: MediPort terminates in the superior vena cava Lungs: Opacities in both mid lung regions and both bases may represent atelectasis or pneumonia.. Pleural spaces: Moderate right pleural effusion. Smaller left pleural effusion.. Heart/Mediastinum: Unremarkable. No cardiomegaly. Bones/joints: Unremarkable. IMPRESSION: 1. Opacities in both mid lung regions and both bases may represent atelectasis or pneumonia.. 2. Moderate right pleural effusion. Smaller left pleural effusion..
[2025-01-10 09:32] LABS: Basophils % 0.5 % (0.1-2.0); Eosinophils # 0.1 K/mm3 (0.0-0.4); Eosinophils % 1.2 % (0.1-12.0); Hematocrit 33.3 % (37.0-47.0); Hemoglobin 11.3 g/dL (12.2-16.2); Lymphocytes # 0.6 K/mm3 (0.7-4.5); Lymphocytes % 7.6 % (10-50); Mean Corpuscular HGB Conc 33.9 g/dL (31.8-35.4); Mean Corpuscular Volume 94.3 fl (81-99); Mean Platelet Volume 8.8 fl (7.4-10.4); Monocytes # 0.7 K/mm3 (0.1-1.0); Neutrophils # 6.9 K/mm3 (1.8-7.8); Neutrophils % 82.5 % (37.0-80.0); Platelet Count 288 K/mm3 (142-424); Red Blood Count 3.53 M/mm3 (4.20-5.40); White Blood Count 8.4 K/mm3 (4.8-10.8)
--- NOTE | 2025-01-10 09:32 | [facility].EDCP ---
Discharge Plan Disposition Chief Complaint: Shortness of Breath/Dyspnea Prescriptions Prescriptions: No Action losartan 50 mg tablet 50 mg PO DAILY levothyroxine 125 mcg tablet 150 mcg PO DAILY raloxifene 60 mg tablet 60 mg PO DAILY hydroxychloroquine 200 mg tablet 200 mg PO DAILY Eliquis 5 mg tablet 5 mg PO BID clobetasol 0.05 % solution 0.05 applic TOPICAL NEEDED PRN (Reason: Skin Condition) oxycodone 5 mg tablet 5 mg PO BID Creon 24,000-76,000 -120,000 unit capsule,delayed release(DR/EC) 48,000 cap PO TID Patient Comments: TAKE 2 CAPSULES BY MOUTH THREE TIMES DAILY WITH MEALS Referrals Follow up/Referrals: Hood Ramírez MD [Primary Care Provider] - See instructions Clinical Impressions Clinical Impression: Pleural effusion, Respiratory failure, Elevated troponin Right middle lobe pneumonia Qualifiers: Pneumonia type: due to unspecified organism Qualified Code(s): J18.9 - Pneumonia, unspecified organism Right lower lobe pneumonia Qualifiers: Pneumonia type: due to unspecified organism Qualified Code(s): J18.9 - Pneumonia, unspecified organism Print Language Print Language: Tajik Discharge ED Provider: Abdoul Fernandez HPI General Chief Complaint: Shortness of Breath/Dyspnea Stated Complaint: SOA Time Seen by Provider: 01/10/25 08:58 Mode of Arrival: Ambulatory Source of Information: Patient and Spouse Limitations: No Limitations Description of Symptoms (Recalled from ER Triage Doc. by RN): pt recently dx with pancreatic cancer and pe this past week, is on eliquis and sees [facility] for oncology services, come in today for soa and cough that has gradually gotten worse since sunday History of Present Illness HPI narrative: Please note that above description of symptoms, in this electronic medical record under categorization of recalled from ER triage doctor by RN are reflective of an initial nursing assessment, however, is not reflective of my full history and physical exam that was personally taken and clarified. Consequentially, this preceding description of symptoms, which may include the patient's categorized chief complaint in the EMR, do not reflect my personal clinical impression, and the ultimate description of history of present illness and patient stated complaints should be deferred to this section of the note. Unless stated otherwise or congruent with this section of the note, additional signs, symptoms, or incongruence should be interpreted as inaccurate with my clinical impression. Related Data Home Medications ?Medication ?Instructions ?Recorded ?Confirmed hydroxychloroquine 200 mg tablet 200 mg PO DAILY . 10/03/22 01/10/25 levothyroxine 125 mcg tablet 150 mcg PO DAILY THYROID 10/03/22 01/10/25 losartan 50 mg tablet 50 mg PO DAILY BLOOD PRESSURE 10/03/22 01/10/25 raloxifene 60 mg tablet 60 mg PO DAILY Osteoporosis 10/03/22 01/10/25 apixaban 5 mg tablet (Eliquis) 5 mg PO BID 01/10/25 01/10/25 clobetasol 0.05 % scalp solution 0.05 applic topical NEEDED PRN 01/10/25 01/10/25 Skin Condition [id number] 48,000 cap PO TID 01/10/25 01/10/25 24,000-76,000-120,000 unit capsule,delayed rel (Creon) oxycodone 5 mg tablet 5 mg PO BID 01/10/25 01/10/25 Allergies Allergy/AdvReac Type Severity Reaction Status Date / Time No Known Drug Allergies Allergy Unknown Other Verified 01/10/25 09:30 (NKDA) [facility] Disclaimer: The information contained in this section may have been updated after the patient was seen, as this information can be updated by other users. Medical History (Updated 01/10/25 @ 14:35 by Abdoul Fernandez MD) Pancreatic cancer Osteoporosis HTN (hypertension) Hypothyroidism Family History Other No significant family history Social History Smoking Status: Never smoker alcohol intake: never current occupational status: retired Travel in the last 8 weeks: None Have you lived/traveled outside US in past 30 days?: No Contact w/someone who lives/traveled outside US past 30 days?: No Exposure to someone with infectious disease in past 14 days?: No Do you have a fever (greater than 100.4 F or 38 C)?: No Have you tested positive for COVID-19: No Exposed to someone with COVID-19 in past 14 days?: No Do you have a sore throat?: No Do you have a cough?: No Do you have any weakness?: No Do you have any diarrhea?: No Are you experiencing any unusual bleeding?: No Do you have any muscle aches/pain?: No Do you have any abdominal pain?: No Are you experiencing loss of taste or smell?: No Other Medical History Have you received the Flu Vaccine for this season: Yes Have you received the Pneumonia Vaccine: Yes ROS Obtained: Yes All systems reviewed & no additional complaints except as documented Physical Exam General General appearance: alert and in no apparent distress Neck Neck exam: Present trachea midline Chest Chest inspection: Present normal inspection and symmetric chest wall rise Respiratory Respiratory exam: Present wheezes (Isolated to right anterior lung lockhart) and other (Speaking in full sentences); Absent respiratory distress, stridor, accessory muscle use or prolonged expiratory phase Cardiovascular Cardiovascular exam: Present regular rate, normal rhythm and other (Pulses equal and symmetric in upper and lower extremities) Extremities Exam Extremities exam: Absent edema Neurological Exam Neurological exam: Present alert, oriented X3 and CN II-XII intact Skin Skin exam: Present warm and dry; Absent cyanosis, diaphoresis or pallor HEART Score HEART Score HEART Score assessment performed?: Yes History (anamnesis): Slightly suspicious ECG: Normal Age: >65 years Risk factors: 1-2 risk factors Troponin: 1-3x normal limit HEART Score: 4 Procedures Limited Ultrasound Indication:: Limited cardiac ultrasound Indication: Shortness of breath, known PEs Identified cardiac views: -Cardiac parasternal long axis -Cardiac parasternal short axis -Cardiac apical four-chamber Findings: -Cardiac activity present -Gross wall motion normal -Pericardial effusion absent -Right heart strain absent Impression: -Normal cardiac ultrasound without evidence of right heart strain. Bilateral pleural effusions Images were saved to permanent archive The study was technically adequate CPT: 85471 This study was performed by me, and I personally interpreted all images/videos. Based on my clinical judgement, these images were adequate and did not necessitate further imaging Critical Care Critical Care Time Critical Care Time: Yes (respiratory) Attestation: On 01/10/25, the high probability of a clinically significant, sudden or life threatening deterioration of the following system(s) required my full and direct attention, intervention and personal management. The time I documented below is in addition to time spent performing reported procedures but includes the following listed in this critical care notation. Total Time Total Critical Care Time: 45 Medical Decision Making Medical Records Medical records reviewed: Yes I reviewed the patient's medical records. Jose G Stephens Pt receiving controlled substance: No Jose G was queried for this patient: No Vital Signs Vital Signs: 01/10/25 08:57 01/10/25 09:02 01/10/25 09:13 Temperature 98.4 F Temperature Source Oral Pulse Rate 107 H 91 H Pulse Rate [Left Radial] 100 H Respiratory Rate 28 H 18 Blood Pressure 180/107 H 161/99 H Blood Pressure [Right Arm] 180/107 H Blood Pressure Mean [Right Arm] 131 02 Sat by Pulse Oximetry 97 95 96 Oxygen Delivery Method Room Air Room Air Room Air 01/10/25 09:30 01/10/25 10:00 01/10/25 10:34 Temperature Temperature Source Pulse Rate 90 95 H 99 H Pulse Rate [Left Radial] Respiratory Rate 18 16 Blood Pressure 148/95 H 137/93 H 159/93 H Blood Pressure [Right Arm] Blood Pressure Mean [Right Arm] 02 Sat by Pulse Oximetry 97 96 97 Oxygen Delivery Method Room Air Room Air Room Air 01/10/25 11:06 01/10/25 11:30 01/10/25 11:50 Temperature Temperature Source Pulse Rate 95 H 92 H 92 H Pulse Rate [Left Radial] Respiratory Rate Blood Pressure 154/99 H 171/112 H 159/91 H Blood Pressure [Right Arm] Blood Pressure Mean [Right Arm] 02 Sat by Pulse Oximetry 98 97 92 L Oxygen Delivery Method Room Air Room Air Room Air 01/10/25 12:00 01/10/25 12:30 01/10/25 13:00 Temperature Temperature Source Pulse Rate 89 93 H 99 H Pulse Rate [Left Radial] Respiratory Rate 18 19 21 Blood Pressure 139/91 H 132/94 H 146/97 H Blood Pressure [Right Arm] Blood Pressure Mean [Right Arm] 02 Sat by Pulse Oximetry 96 96 95 Oxygen Delivery Method Room Air Room Air Room Air 01/10/25 13:30 01/10/25 14:00 01/10/25 14:39 Temperature Temperature Source Pulse Rate 115 H 120 H 105 H Pulse Rate [Left Radial] Respiratory Rate 18 14 21 Blood Pressure 127/92 H 111/82 146/101 H Blood Pressure [Right Arm] Blood Pressure Mean [Right Arm] 02 Sat by Pulse Oximetry 95 95 96 Oxygen Delivery Method Room Air Room Air Room Air Lab Data Labs: Lab Results 01/10/25 09:15: WBC 8.4, RBC 3.53 L, Hgb 11.3 L, Hct 33.3 L, MCV 94.3, MCH 32.0 H, MCHC 33.9, RDW 14.0, Plt Count 288, MPV 8.8, Neut % (Auto) 82.5 H, Lymph % (Auto) 7.6 L, Parke % (Auto) 8.0, Eos % (Auto) 1.2, Baso % (Auto) 0.5, Neut # (Auto) 6.9, Lymph # (Auto) 0.6 L, Parke # (Auto) 0.7, Eos # (Auto) 0.1, Baso # (Auto) 0.0, PT 10.6, INR 0.96, APTT 26.1, Sodium 131 L, Potassium 3.9, Chloride 96 L, Carbon Dioxide 29, Anion Gap 9.9, BUN 8, Creatinine 0.50 L, Estimated Creat Clear 49, Estimated GFR 120, Est GFR ( Amer) 145, Glucose 162 H, Calcium 9.6, Magnesium 2.0, Total Bilirubin 1.0, AST 42 H, ALT 32, Alkaline Phosphatase 72, Troponin I 0.04 H, NT-Pro-B Natriuret Pep 175, Total Protein 6.7, Albumin 3.8, Globulin 2.9, Albumin/Globulin Ratio 1.3, Procalcitonin 0.070 01/10/25 09:25: VBG pH 7.38, VBG pCO2 47.4, VBG pO2 31.7, VBG HCO3 27.3, VBG Total CO2 28.7 H, VBG O2 Saturation 61.7, VBG Base Excess 2.1, VBG Lactic Acid 1.1 01/10/25 13:50: Troponin I 0.04 H 01/10/25 09:15 01/10/25 09:15 Response Orders (Tests/Meds): ED MEDICATIONS Discontinued Medications Generic Name Dose Route Start Last Admin Trade Name Freq PRN Reason Stop Dose Admin Cefepime HCl 2 gm/ Sodium 100 mls @ 200 mls/hr 01/10/25 11:17 01/10/25 11:34 Chloride IV 01/10/25 11:46 200 mls/hr ONCE ONE Administration Azithromycin 500 mg/ Sodium 250 mls @ 250 mls/hr 01/10/25 11:17 01/10/25 12:22 Chloride IV 01/10/25 11:18 250 mls/hr ONCE ONE Administration Iopamidol 70 ml 01/10/25 10:59 01/10/25 11:00 Iopamidol-370 (76%);100ml Bottle IV 01/10/25 11:00 70 ml ONCE ONE Administration Sodium Chloride 10 ml 01/10/25 10:59 01/10/25 11:00 Sodium Chloride 0.9% 10ml Syr (Rad Only) IV 01/10/25 11:00 10 ml ONCE ONE Administration Sodium Chloride 50 ml 01/10/25 10:59 01/10/25 11:00 0.9 % Sodium Chloride 50 Ml Vial IV 01/10/25 11:00 50 ml ONCE ONE Administration ORDERS Category Date Time Status CT angio chest PE protocol Stat Cat Scan 01/10/25 10:16 Completed CXR 2 view (NOT portable) [XR chest 2V] Stat Exams 01/10/25 09:25 Completed POCUS Point of Care (ER Only) Stat Exams 01/10/25 09:26 Completed Complete Blood Count Auto Diff Stat Lab 01/10/25 09:15 Completed Comprehensive Metabolic Panel Stat Lab 01/10/25 09:15 Completed Magnesium Stat Lab 01/10/25 09:15 Completed NT Pro Brain Natriuretic Pep. Stat Lab 01/10/25 09:15 Completed PT INR [Prothrombin Time INR] Stat Lab 01/10/25 09:15 Completed PTT [Activated Partial Thrombo Time] Stat Lab 01/10/25 09:15 Completed Procalcitonin Stat Lab 01/10/25 09:15 Completed Troponin I Q3H Lab 01/10/25 13:50 Completed Troponin I Q3H Lab 01/10/25 15:30 Ordered Troponin I Stat Lab 01/10/25 09:15 Completed Blood Culture Stat Micro 01/10/25 11:17 Received Venous Blood Gas Stat RT 01/10/25 09:25 Completed MDM Narrative Medical Decision Narrative: This is a 79-year-old female history of pancreatic cancer who has not received any chemo or radiation, provoked pulmonary emboli secondary to malignancy currently on Eliquis presenting with shortness of breath. Patient states that she was started on antiten a inhibitor at the beginning of this month Harshil, followed up with [facility] and was switched over to Eliquis a little over a week ago. States that for about the last 7 to 10 days, she has had progressively worsening shortness of breath. Intermittent dry cough. No fevers or chills or systemic signs or symptoms. No chest pain, nausea, vomiting. Shortness of breath is exertional, not associated with chest pain or neurologic deficits. No lower extremity swelling, PND, orthopnea, or other concerns. History was obtained via conversation with patient. On arrival, patient hemodynamically stable, alert, oriented x4, appropriate, GCS 15, moving all extremities spontaneously, pupils equal and reactive to light. Full physical exam performed and significant for very clinically well-appearing patient no acute distress. Speaking full sentences, nontachycardic, normotensive, saturating 97 to 100% on room air. Lungs are clear with the exception of inspiratory wheezes on right anterior lung lockhart. Pulses equal and symmetric. Patient neurologically intact. Cardiac exam otherwise normal with no lower extremity edema. Differential includes progression of disease, worsening massive/submassive emboli, pneumonia, CHF/right heart strain, pneumothorax, bronchitis, pneumonia, ACS, NM, among others Patient was given cefepime and has a send for symptomatic management and correction of underlying abnormalities. Patient placed on continuous cardiac monitoring and continuous pulse ox with initial blood pressure 180/107, heart rate 94, saturation 97% on room air. Independent interpretation of EKG shows sinus rhythm 99 bpm with NC interval 182, QRS 96, QTc 392. Normal axis. No evidence of right heart strain. No acute ischemic change. Workup independently interpreted and significant for nonactionable CBC, but neutrophilic differential. Coags nonactionable. VBG nonactionable. Mild hyponatremia. Initial troponin elevated 0.04, BNP negative. Procalcitonin negative at 0.07. On independent interpretation of imaging, patient has what appears to be atelectasis versus multifocal pneumonia on the right with bilateral pleural effusions, right greater than left. CT PE was ordered as I have no image with which to compare. On CT PE. Small subsegmental pulmonary emboli, but no segmental or main branch embolus. Patient does have multifocal pneumonia on the right with significant consolidation as well as bilateral pleural effusions right greater than left. See radiology read for full review of final results. Heart score 4. Blood cultures were drawn, cefepime and azithromycin were administered. Patient was placed in observation beginning at 10 AM in order to rule out evolving NM with delta troponins and determine need for admission versus home-going. The patient was provided serial exams, further testing, cardiac monitoring while awaiting results. Independent interpretation of results demonstrated stable and flat troponin at 0.04. On reevaluation, patient still in no acute distress not requiring oxygen and speaking full sentences, no changes from baseline. At this time, I feel patient is appropriate for transfer. I contacted [facility] and spoke to oncologist on-call, Dr. Garcia. Recommended calling transfer center for further transfer and workup given change in clinical status. I called the transfer center and spoke to the transfer center attending at that time around 12 PM on 01/10. Graciously accepted patient for transfer, but stated they did not have any beds available. Given hospital policy, patient will wait here in the emergency department for 4 hours after transfer conversation prior to be admitted to [facility] pending transfer. Observation time in the emergency department and's 4 PM. Total observation time 6 hours. Given patient presentation, workup, history, this most likely represents parapneumonic versus pleural effusion versus malignant effusion and hypoxemic respiratory failure. Because patient high risk for clinical decompensation if discharged, deemed appropriate for transfer and inpatient admission. Results were relayed to patient who voiced understanding and patient was agreeable to transfer, inpatient admission, and management. Patient was graciously accepted and transferred to for further definitive management. Prior to transfer, patient admitted here for flor-transfer care. [employer] disclaimer Much of this encounter note is an electronic gold wheel blocker and polisher spoken language to printed text. Electronic gold wheel blocker and polisher of the spoken language may permit errors. Although I have reviewed the note, some errors may still exist.
[2025-01-10 09:34] LABS: Lactate Venous 1.1 mmol/L (0.4-2.0); VBG Base Excess 2.1 mmol/L (-2.4-2.3); VBG HCO3 27.3 mmol/L (23-30); VBG Oxygen Saturation 61.7 % (50-70); VBG PCO2 47.4 mmol/L (35-51); VBG PH 7.38 mmol/L (7.31-7.41); VBG PO2 31.7 mmol/L (28-40); VBG Total CO2 28.7 mmol/L (23-27)
[2025-01-10 09:41] LABS: Activated Partial Thrombo Time 26.1 seconds (22.5-28.5); INR 0.96 (0.9-1.1); Prothrombin Time 10.6 seconds (9.2-12.1)
--- NOTE | 2025-01-10 09:47 | PC.NURSE ---
0945- Hourly rounding completed, patient expresses no needs at this time. A & O x 4. No distress noted.
[2025-01-10 09:49] LABS: Albumin Level 3.8 g/dl (3.5-5.0); Chloride 96 mmol/L (98-107); Potassium 3.9 mmoL/L (3.5-5.1); Sodium 131 mmol/L (136-145)
[2025-01-10 09:52] LABS: Alanine Aminotransferase 32 U/L (12-78); Albumin/Globulin Ratio 1.3 (1.1-1.8); Alkaline Phosphatase 72 U/L (38-126); Anion Gap 9.9 mEq/L (5-15); Aspartate Amino Transferase 42 U/L (14-36); Blood Urea Nitrogen 8 mg/dl (7-17); Carbon Dioxide 29 mmol/L (22.0-30.0); Creatinine Clearance Estimated 49 mL/min (50-200); Estimated Glomerular Filt Rate 120 ml/min (>60); GFR (African American) 145 ML/MIN (>60); Globulin 2.9 g/dL (1.3-3.2); Total Protein,Serum 6.7 g/dl (6.3-8.2)
[2025-01-10 09:53] LABS: Calcium 9.6 mg/dl (8.4-10.2); Glucose 162 mg/dl (74-100)
--- NOTE | 2025-01-10 09:59 | PC.NURSE ---
ROUNDED ON THE PT. THE PT VOICES THAT SHE DOES NOT NEED ANYTHING AT THIS TIME. CALL LIGHT IS WITHIN REACH OF THE PT. FAMILY MEMBER IS PRESENT AT THE BEDSIDE. PT WAS GIVEN 2 PILLOWS.
[2025-01-10 10:02] LABS: NT Pro Brain Natriuretic Pep. 175 pg/mL (0-450)
[2025-01-10 10:04] LABS: Troponin I 0.04 ng/ml (0.00-0.034)
--- NOTE | 2025-01-10 10:16 | CT_ITS ---
PROCEDURE INFORMATION: Exam: CTA Chest With Contrast Exam date and time: 01/10/2025 10:57 AM Age: 79 years old Clinical indication: Other: Recent pes, new SOA and cough/effusions TECHNIQUE: Imaging protocol: Computed tomographic angiography of the chest with contrast. Exam focused on the arteries. 3D rendering (Not supervised by radiologist): MIP and/or 3D reconstructed images were created by the technologist. Radiation optimization: All CT scans at this facility use at least one of these dose optimization techniques: automated exposure control; mA and/or kV adjustment per patient size (includes targeted exams where dose is matched to clinical indication); or iterative reconstruction. Contrast material: ISOVUE; Contrast volume: 70 ml; Contrast route: INTRAVENOUS (IV); COMPARISON: CR XR CHEST 2V 01/10/2025 9:24 AM FINDINGS: Tubes, catheters and devices: MediPort terminates in the superior vena cava Pulmonary arteries: No evidence of pulmonary embolus to the segmental level. Aorta: No aneurysm of the aorta. No dissection of the aorta. Lungs: Consolidation in the right middle lobe and both lower lobes may represent multifocal pneumonia.. Pleural spaces: Large right pleural effusion.. Moderate left pleural effusion.. Heart: There is calcification of the aortic valve annulus. There is calcification of the mitral valve annulus. Coronary arteries: Coronary artery calcifications may indicate coronary artery disease. Lymph nodes: Pathologic node in the preaortic region 16 x 14 mm. Pathologic node in the right hilum 20 x 19 mm. Pathologic node in the subcarinal region 27 x 16 mm.. Bones/joints: Unremarkable. No acute fracture. Soft tissues: Unremarkable. IMPRESSION: 1. No evidence of pulmonary embolus to the segmental level. 2. Large right pleural effusion.. 3. Moderate left pleural effusion.. 4. Pathologic node in the preaortic region 16 x 14 mm. Pathologic node in the right hilum 20 x 19 mm. Pathologic node in the subcarinal region 27 x 16 mm.. 5. Consolidation in the right middle lobe and both lower lobes may represent multifocal pneumonia..
--- NOTE | 2025-01-10 10:25 | PC.NURSE ---
Dr. Fernandez at bedside for POCUS
--- NOTE | 2025-01-10 10:46 | PC.NURSE ---
PT TO CT
[2025-01-10] MEDS: 0.9 % SODIUM CHLORIDE 50 ML VIAL IV (11:00)
[2025-01-10] MEDS: IOPAMIDOL-370 (76%);100ML BOTTLE 70 ML IV (11:00)
[2025-01-10] MEDS: SODIUM CHLORIDE 0.9% 10ML SYR (RAD ONLY) 10 ML IV (11:00)
--- NOTE | 2025-01-10 11:02 | PC.NURSE ---
PT RETURNED FROM CT
--- NOTE | 2025-01-10 11:02 | PC.NURSE ---
Pt back in room from Radiology
--- NOTE | 2025-01-10 11:15 | PC.NURSE ---
1105- Hourly rounding complete, water given to patient. Patient expresses no other needs at this time. A & O x 4.
--- NOTE | 2025-01-10 11:27 | PC.NURSE ---
CALLED [facility] PER DR. WOODS FOR POSS TRANSFER FOR RESP FAILURE AND PLEURAL EFFUSION. [facility] STATED THAT THEY WOULD GIVE US A CALLBACK. IMAGES HAVE BEEN POWERSHARED.
[2025-01-10] MEDS: CEFEPIME HCL 2 GM in 0.9 % SODIUM CHLORIDE 100 ML IV (11:34)
--- NOTE | 2025-01-10 11:53 | PC.NURSE ---
Patient accidentally pulled her IV out while using the restroom, 4x4 was applied and patient was assisted to her room and placed on the bed. I placed another 18ga IV in the R AC and secured it. As per the MAR I started the cefepime on this patient.
[2025-01-10] MEDS: AZITHROMYCIN 500 MG in 0.9 % SODIUM CHLORIDE 250 ML 250 MG IV (12:22)
--- NOTE | 2025-01-10 12:36 | PC.NURSE ---
ROUNDED ON THE PT. THE PT VOICES THAT SHE DOES NOT NEED ANYTHING AT THIS TIME. CALL LIGHT IS WITHIN REACH OF THE PT. IS PRESENT AT THE BEDSIDE. PT WAS GIVEN A REGULAR TRAY.
--- NOTE | 2025-01-10 12:57 | PC.NURSE ---
1257- Hourly rounding complete, patient eating a meal. No needs expressed at this time. A & O x 4. Respirations are even and unlabored. Awaiting bed assignment at for transfer.
--- NOTE | 2025-01-10 14:06 | PC.NURSE ---
1406- Hourly rounding completed, patient expresses no needs at this time. A & O x 4. Ambulatory to restroom without difficulty.
[2025-01-10 14:19] LABS: Troponin I 0.04 ng/ml (0.00-0.034)
--- NOTE | 2025-01-10 14:43 | PC.NURSE ---
rounded on the pt. the pt voices that she does not need anything at this time. call light is within reach of the pt. is present at the bedside.
--- NOTE | 2025-01-10 15:06 | PC.NURSE ---
PT UPDATED ON POC FROM , PT HAS BED, BUT IS NOT CLEANED AT THIS TIME. WILL CALL BACK WITH AN UPDATE. PT UPDATED . [facility] NO NEEDS AT THIS TIME
--- NOTE | 2025-01-10 16:17 | PC.NURSE ---
LYNDSAY called with bed assignment, sheandrea going to [address] [address] call report to [phone]
== END 2025-01-10 16:47 | disposition short-term general hospital (02) ==
PROVIDERS: Emergency Provider Emergency Medicine; PCP Internal Medicine Adolescent Medicine
DX: J18.9 Pneumonia, unspecified organism (principal); J96.90 Respiratory failure, unspecified, unspecified whether with hypoxia or hypercapnia; J90 Pleural effusion, not elsewhere classified; R79.89 Other specified abnormal findings of blood chemistry
CPT/HCPCS: 71046; 71275; 80053; 82803; 83735; 83880; 84145; 84484; 85025; 85610; 85730; 87040; 93005; 96365; 96374; 99291; J0456; J7050; Q9967